=== PATIENT | female | born 1970 | race Caucasian/White ===

== ENCOUNTER 2018-01-18 03:36 | Emergency (ER) | payer SELFPAY ==
[2018-01-18] MEDS ORDERED: Morphine VIAL* 4 MG/ML VIAL (1 ml vial) IV ONE (04:09)
[2018-01-18] MEDS ORDERED: Aspirin 81 mg CHEW TAB* 81 MG TAB.CHEW PO ONE (04:09)
[2018-01-18] MEDS ORDERED: Metoclopramide IV* 5 MG/ML 2 ML VIAL IV SLOW PU ONE (04:10)
[2018-01-18 04:30] LABS: ABS Basophils 0.1 10^3/ul (0-0.2); ABS Eosinophils 0.2 10^3/ul (0-0.6); ABS Lymphocytes 2.2 10^3/ul (1.0-4.8); ABS Monocytes 0.7 10^3/ul (0-0.8); ABS Nucleated RBC 0 10^3/ul; Eosinophil % 2.1 % (0-6); Hematocrit 40 % (35-47); Hemoglobin 13.5 g/dl (12.0-16.0); Lymphocyte % 27.2 % (25-47); Mean Corpuscular HGB Conc 34 g/dl (31-36); Mean Corpuscular Hemoglobin 32 pg (27-31); Mean Corpuscular Volume 95 fL (80-97); Mean Platelet Volume 7.7 um3 (7.4-10.4); Nucleated Red Blood Cells % 0.1; Platelet Count 278 10^3/ul (150-450); Red Blood Count 4.21 10^6/ul (4.0-5.4); Red Cell Distribution Width 13 % (10.5-15); White Blood Count 8.3 10^3/ul (3.5-10.8)
[2018-01-18 04:47] LABS: EGFR Non-African American 95.6 (>60)
[2018-01-18 05:13] LABS: INR 0.85 (0.77-1.02)
--- NOTE | 2018-01-18 05:32 | ED ---
Soco Butcher Rebecca, scribed for Kiersten Gomes MD on 01/18/18 at 0408 . HPI Chest Pain - HPI Summary HPI Summary: Pt is a 47 y/o F who presents to ED c/o left anterior chest pain. Sx began at 0300, waking her up from sleep. Currently, pain is moderate ranked 6/10 with radiation to her back in the left shoulder blade. Sx aggravated by deep breaths and movement, alleviated by nothing. Additionally c/o diaphoresis at onset of pain. Denies vomiting and fever. No recent changes in activity. Is on oral contraceptive and SHx current smoker. - History of Current Complaint Chief Complaint: EDChestPainROMI Time Seen by Provider: 01/18/18 03:59 Hx Obtained From: Patient Onset/Duration: Still Present Time of Onset: 03:00 Current Severity: Moderate Pain Intensity: 6 Pain Scale Used: 0-10 Numeric Chest Pain Location: Left Anterior Chest Pain Radiates: Yes Chest Pain Radiates To:: Back - Left shoulder blade Aggravating Factor(s): Movement, Deep Breaths Alleviating Factor(s): Nothing Associated Signs and Symptoms: Positive: Diaphoresis. Negative: Fever, Vomiting - Allergy/Home Medications Allergies/Adverse Reactions: Allergies Allergy/AdvReac Type Severity Reaction Status Date / Time codeine AdvReac Intermediate Rash Verified 01/18/18 03:37 Penicillins AdvReac Intermediate Diarrhea Verified 01/18/18 03:37 PMH/Surg Hx/FS Hx/Imm Hx Endocrine/Hematology History: Denies: Hx Diabetes Cardiovascular History: Denies: Hx Congestive Heart Failure, Hx Hypertension, Hx Pacemaker/ICD Respiratory History: Denies: Hx Asthma History: Denies: Hx Dialysis, Hx Renal Disease Sensory History: Denies: Hx Hearing Aid Psychiatric History: Denies: Hx Panic Disorder - Surgical History Surgery Procedure, Year, and Place: 2 C SECTIONS [id number]. LUMPECTOMY ON RIGHT BREAST @[facility] Infectious Disease History: No Infectious Disease History: Denies: Traveled Outside the [place] in Last 30 Days - Family History Known Family History: Positive: Other - Hx bowel issues - Social History Alcohol Use: N Substance Use Type: Reports: None Smoking Status (MU): Never Smoked Tobacco Review of Systems Positive: Skin Diaphoresis. Negative: Fever Positive: Chest Pain Negative: Vomiting All Other Systems Reviewed And Are Negative: Yes Physical Exam - Summary Physical Exam Summary: VITAL SIGNS: Reviewed. GENERAL: ~Patient is a well-developed and nourished female who is lying comfortable in the stretcher. Patient is not in any acute respiratory distress. HEAD AND FACE: No signs of trauma. No ecchymosis, hematomas or skull depressions. No sinus tenderness. EYES: PERRLA, EOMI x 2, No injected conjunctiva, no nystagmus. EARS: Hearing grossly intact. Ear canals and tympanic membranes are within normal limits. MOUTH: Oropharynx within normal limits. NECK: Supple, trachea is midline, no adenopathy, no JVD, no carotid bruit, no c- spine tenderness, neck with full ROM. CHEST: Symmetric, no tenderness at palpation LUNGS: Clear to auscultation bilaterally. No wheezing or crackles. CVS: Regular rate and rhythm, S1 and S2 present, no murmurs or gallops appreciated. ABDOMEN: Soft, non-tender. No signs of distention. No rebound no guarding, and no masses palpated. Bowel sounds are normal. EXTREMITIES: FROM in all major joints, no edema, no cyanosis or clubbing. NEURO: Alert and oriented x 3. No acute neurological deficits. Speech is normal and follows commands. SKIN: Dry and warm Triage Information Reviewed: Yes Vital Signs On Initial Exam: Initial Vitals Temp Pulse Resp BP Pulse Ox 97.9 F 82 20 127/73 97 01/18/18 03:37 01/18/18 03:37 01/18/18 03:37 01/18/18 03:37 01/18/18 03:37 Vital Signs Reviewed: Yes Diagnostics - Vital Signs Vital Signs Temp Pulse Resp BP Pulse Ox 01/18/18 03:37 97.9 F 82 20 127/73 97 - Laboratory Result Diagrams: 01/18/18 04:13 01/18/18 04:13 Lab Statement: Any lab studies that have been ordered have been reviewed, and results considered in the medical decision making process. - Radiology CXR Xray Interpretation: No Acute Changes - Pending official report. Radiology Interpretation Completed By: ED Physician - EKG 0348 Cardiac Rate: NL - 67 bpm EKG Rhythm: Sinus Rhythm ST Segment: Non-Specific EKG Interpretation: Normal axis. Normal interval. No ischemic changes. Re-Evaluation - Re-Evaluation First Eval Re-Evaluation Time: 05:24 Change: Improved Comment: Pt is feeling much better, chest pain free. Chest Pain Course/Dx - Course Assessment/Plan: Pt is a 47 y/o F who presents to ED c/o left anterior chest pain since 299, waking her up from sleep. Currently, pain is moderate ranked 6/ 10 with radiation to her back in the left shoulder blade. Sx aggravated by deep breaths and movement. Additionally c/o diaphoresis at onset of pain. Denies vomiting and fever. No recent changes in activity. Is on oral contraceptive and SHx current smoker. Blood work was done with results including a D-dimer <200 and troponin of 0.00. CXR reveals no acute findings. EKG is sinus rhyth with no ischemic changes. In the ED course, pt received Reglan, Morphine and fluids which improved pain. Upon reevaluation, she is pain free. She will be D/C to home with Dx of atypical chest pain and chest wall pain with Rx for Motrin and a follow up with her PCP. She understands and agrees. Allergies noted. - Diagnoses Provider Diagnoses: Atypical chest pain, Chest wall pain Discharge - Sign-Out/Discharge Documenting (check all that apply): Discharge/Admit/Transfer - Discharge - Discharge Plan Condition: Stable Disposition: HOME Prescriptions: Ibuprofen TAB* [Motrin TAB* 800 MG] 800 mg PO Q6H PRN #30 tab PRN Reason: Pain Patient Education Materials: Chest Pain (ED), Chest Wall Pain (ED) Referrals: Brennen Melchor MD [Primary Care Provider] - 3 Days Additional Instructions: RETURN TO ED FOR ANY NEW OR WORSENING SYMPTOMS. The documentation as recorded by the Soco ospina Rebecca accurately reflects the service I personally performed and the decisions made by , Kiersten Gomes MD.
[2018-01-18 05:49] VITALS: BP 95/58
--- NOTE | 2018-01-18 08:17 | RAD ---
INDICATION: Chest pain COMPARISON: None. TECHNIQUE: Single AP portable view of the chest was obtained. FINDINGS: Image quality is compromised due to the relative inferiority of a portable chest x-ray. The heart and mediastinum exhibit normal size and contour. The lungs are grossly clear. There is no evidence of a large pleural effusion. Visualized bones are normal for the patient's age. IMPRESSION: No radiographic evidence for acute cardiopulmonary abnormality on this portable chest x-ray.
== END 2018-01-18 05:52 | disposition home or self-care (01) ==
LOC: ED 03:36
DX: R07.89 Other chest pain (principal); R61 Generalized hyperhidrosis; Z88.5 Allergy status to narcotic agent; Z88.0 Allergy status to penicillin
CPT/HCPCS: 36415; 71045; 80053; 82550; 83605; 83735; 83880; 84484; 84702; 85025; 85379; 85610; 85730; 93005; 96374; 96375; 99284; A9270-GY; J2270; J2765